=== PATIENT | male | born 1970 | race Caucasian/White ===

== ENCOUNTER 2016-12-22 12:20 | Emergency (ER) | payer OTHER, MEDICAID ==
[~2016-12-22] VITALS: Ht 195.6 cm; Wt 104.3 kg
[2016-12-22 12:25] VITALS: BP_SYST 157
[2016-12-22] MEDS ORDERED: LORazepam 1 MG TABLET PO ONE (15:15)
[2016-12-22 15:22] LABS: BASOPHILS # (AUTO) 0.1 K/uL (0.0-0.2); BASOPHILS % (AUTO) 0.6 % (0.0-2.0); EOSINOPHILS # (AUTO) 0.2 K/uL (0.0-0.4); EOSINOPHILS % (AUTO) 1.9 % (0.0-4.0); HEMOGLOBIN 14.7 g/dL (14.0-18.0); LYMPHOCYTES # (AUTO) 2.5 K/uL (1.0-5.5); LYMPHOCYTES % (AUTO) 27.9 % (20.5-51.5); MEAN CORPUSCULAR HEMOGLOBIN 27 pg (27-31); MEAN CORPUSCULAR HGB CONC 33 % (32-36); MEAN CORPUSCULAR VOLUME 83 fL (79.0-98.0); MONOCYTES # (AUTO) 0.7 K/uL (0.0-1.0); MONOCYTES % (AUTO) 7.3 % (1.7-9.3); NEUTROPHILS # (AUTO) 5.6 K/uL (1.8-7.7); NEUTROPHILS % (AUTO) 62.3 % (40.0-70.0); PLATELET COUNT (AUTO) 271 K/uL (130-430); RED BLOOD CELL COUNT(AUTO) 5.42 MIL/uL (4.2-6.2); RED CELL DISTRIBUTION WIDTH 13.5 % (9.0-15.0); WHITE BLOOD COUNT (AUTO) 9.1 K/uL (4.8-10.8)
[2016-12-22 15:34] LABS: CALCIUM 9.1 mg/dL (8.4-11.0); CREATININE 0.81 mg/dL (0.55-1.30); POTASSIUM 3.8 mmol/L (3.5-5.1)
[2016-12-22 15:50] LABS: ALBUMIN 4.3 g/dL (3.4-4.8); FREE T4 (FREE THYROXINE) 0.8 ng/dL (0.6-1.6); THYROID STIMULATING HORMONE 1.29 uIu/mL (0.34-4.82); TOTAL BILIRUBIN 0.3 mg/dL (0.0-1.0); TOTAL PROTEIN, SERUM 7.6 g/dL (6.4-8.3)
[2016-12-22 17:47] VITALS: BP_SYST 136
== END 2016-12-22 17:47 | disposition home or self-care (01) ==
LOC: SED 12:20
DX: F41.9 Anxiety disorder, unspecified (principal)
CPT/HCPCS: 36415; 71010; 80053; 84439; 84443-TC; 84484; 85025; 93005; 99285

== ENCOUNTER 2017-01-08 13:22 | Emergency (ER) | payer OTHER, MEDICAID ==
[~2017-01-08] VITALS: Ht 195.6 cm; Wt 104.3 kg
[2017-01-08 13:30] VITALS: BP_SYST 133
--- NOTE | 2017-01-08 13:34 | NUR ---
Pt placed to ER bed 02, to rylee, report given to SERGEI Helton.
--- NOTE | 2017-01-08 13:35 | NUR ---
PT PRSENTS TO ED C/O ABD PAIN W/NAUSEA X 3 DAYS W/ A FEW EPISODES OF VOMITING.PT REPORTS BEING WEAK AND UNABLE T O TOLERATE FOOD.PT HAS NO ACUTE DISTRESS NOTED. PT ABLE TO SPEAK IN FULL SENTENCES.
--- NOTE | 2017-01-08 13:38 | NUR ---
ER at bedside examining patient.
--- NOTE | 2017-01-08 13:40 | NUR ---
# 20 gauge angiocath placed to LH. Use of asceptic technique. Opsite placed over site. Blood return noted. Flushed with 10 cc of normal saline. No evidence of infiltration noted. Patient tolerated well.
[2017-01-08] MEDS ORDERED: ONDANSETRON HCL 4 MG/2 ML VIAL IVP ONE (14:00)
[2017-01-08] MEDS ORDERED: NACL 0.9% 1,000 ML IV ONE ×2 (14:00→16:00)
[2017-01-08] MEDS ORDERED: KETOROLAC TROMETHAMINE 30 MG VIAL IVP ONE (14:00)
--- NOTE | 2017-01-08 14:30 | NUR ---
Pt medicated tolerated well.
[2017-01-08 14:33] LABS: BASOPHILS # (AUTO) 0.1 K/uL (0.0-0.2); BASOPHILS % (AUTO) 1.4 % (0.0-2.0); EOSINOPHILS % (AUTO) 0.6 % (0.0-4.0); HEMATOCRIT 51.4 % (36-54); HEMOGLOBIN 16.3 g/dL (14.0-18.0); LYMPHOCYTES # (AUTO) 1.6 K/uL (1.0-5.5); LYMPHOCYTES % (AUTO) 21.4 % (20.5-51.5); MEAN CORPUSCULAR HEMOGLOBIN 27 pg (27-31); MEAN CORPUSCULAR HGB CONC 32 % (32-36); MEAN CORPUSCULAR VOLUME 85 fL (79.0-98.0); MONOCYTES # (AUTO) 0.7 K/uL (0.0-1.0); MONOCYTES % (AUTO) 9.8 % (1.7-9.3); NEUTROPHILS # (AUTO) 4.9 K/uL (1.8-7.7); NEUTROPHILS % (AUTO) 66.8 % (40.0-70.0); PLATELET COUNT (AUTO) 245 K/uL (130-430); RED BLOOD CELL COUNT(AUTO) 6.07 MIL/uL (4.2-6.2); RED CELL DISTRIBUTION WIDTH 13.4 % (9.0-15.0); WHITE BLOOD COUNT (AUTO) 7.3 K/uL (4.8-10.8)
[2017-01-08 14:43] LABS: CREATININE 1.02 mg/dL (0.55-1.30); POTASSIUM 3.7 mmol/L (3.5-5.1)
[2017-01-08 14:45] LABS: PROTHROMBIN TIME 10.6 SECS (9.5-12.5)
[2017-01-08 14:48] LABS: ALBUMIN 4.4 g/dL (3.4-4.8); TOTAL BILIRUBIN 0.5 mg/dL (0.0-1.0); TOTAL PROTEIN, SERUM 8.5 g/dL (6.4-8.3)
--- NOTE | 2017-01-08 16:10 | NUR ---
Pt receiving additional IVF.
[2017-01-08] MEDS ORDERED: LIDOCAINE VISCOUS 2%, 15 ML UDC MM ONE (16:30)
[2017-01-08] MEDS ORDERED: BELLADONNA ALKALOIDS/PHENOBARB 5 ML UDC PO ONE (16:30)
[2017-01-08] MEDS ORDERED: MAG-AL HYDROX/SIMETH 30 ML UDC PO ONE (16:30)
--- NOTE | 2017-01-08 16:49 | NUR ---
Pt tolerated medication well. attempting urine specimen collection.
--- NOTE | 2017-01-08 17:14 | NUR ---
Pt reports pain resolving. UA cancelled per Dr. Bartlett. Pt endorsed to Yue MAI
[2017-01-08 17:52] VITALS: BP_SYST 127
--- NOTE | 2017-01-08 17:52 | NUR ---
Patient given written and verbal discharge instructions and verbalizes understanding. ER MD discussed with patient the results and treatment provided. Patient in stable condition. ID arm band removed. IV catheter removed intact and dressing applied, no active bleeding. Rx of bentyl, zofran given. Patient educated on pain management and to follow up with PMD. Pain Scale 3/10. Opportunity for questions provided and answered.
== END 2017-01-08 17:52 | disposition home or self-care (01) ==
LOC: SED 13:22
DX: E86.0 Dehydration (principal); R10.9 Unspecified abdominal pain
CPT/HCPCS: 36415; 71010; 80053; 80061; 84484; 85025; 85610; 85730; 93005; 96361; 96374; 96375; 99285; J1885; J2001; J2405; J7030

== ENCOUNTER 2017-05-07 16:09 | Inpatient (IN) | payer OTHER, MEDICAID ==
[~2017-05-07] VITALS: Ht 195.6 cm; Wt 104.3 kg
[2017-05-07 16:21] VITALS: BP_SYST 129
[2017-05-07] MEDS ORDERED: ONDANSETRON HCL 4 MG/2 ML VIAL IVP ONE (17:15)
[2017-05-07] MEDS ORDERED: NACL 0.9% 1,000 ML IV ONE ×2 (17:15→17:30)
[2017-05-07 17:17] LABS: EOSINOPHILS # (AUTO) 0.1 K/uL (0.0-0.4); HEMATOCRIT 41.8 % (36-54); LYMPHOCYTES # (AUTO) 0.6 K/uL (1.0-5.5); MEAN CORPUSCULAR HEMOGLOBIN 27 pg (27-31); MEAN CORPUSCULAR HGB CONC 33 % (32-36); MEAN CORPUSCULAR VOLUME 83 fL (79.0-98.0); RED CELL DISTRIBUTION WIDTH 13.1 % (9.0-15.0)
[2017-05-07 17:28] LABS: BASOPHILS % (AUTO) 0.4 % (0.0-2.0); EOSINOPHILS % (AUTO) 1.4 % (0.0-4.0); HEMOGLOBIN 13.7 g/dL (14.0-18.0); LYMPHOCYTES % (AUTO) 6.5 % (20.5-51.5); MONOCYTES # (AUTO) 0.5 K/uL (0.0-1.0); MONOCYTES % (AUTO) 5.6 % (1.7-9.3); NEUTROPHILS # (AUTO) 8.1 K/uL (1.8-7.7); NEUTROPHILS % (AUTO) 86.1 % (40.0-70.0); PLATELET COUNT (AUTO) 205 K/uL (130-430); RED BLOOD CELL COUNT(AUTO) 5.02 MIL/uL (4.2-6.2); WHITE BLOOD COUNT (AUTO) 9.3 K/uL (4.8-10.8)
[2017-05-07] MEDS ORDERED: KETOROLAC TROMETHAMINE 30 MG VIAL IVP ONE (17:30)
[2017-05-07] MEDS ORDERED: NACL 0.9% 1,000 ML IV SCH (17:32)
[2017-05-07 17:37] LABS: INR 1.1 (0.80-1.20); PROTHROMBIN TIME 10.7 SECS (9.5-12.5)
[2017-05-07 17:41] LABS: CALCIUM 9.6 mg/dL (8.4-11.0); CREATININE 0.98 mg/dL (0.55-1.30); POTASSIUM 3.1 mmol/L (3.5-5.1)
[2017-05-07] MEDS ORDERED: IPRATROPIUM BROM 0.5 MG/2.5 ML VIAL.NEB (ATROVENT) IH ONE (17:45)
[2017-05-07] MEDS ORDERED: ALBUTEROL SULFATE 0.083% 2.5 MG/3 ML VIAL.NEB IH ONE (17:45)
[2017-05-07] MEDS ORDERED: cefTRIAXone 2 GM VIAL ONE (18:06)
[2017-05-07] MEDS ORDERED: NITROGLYCERIN 0.4 MG TAB.SUBL SL PRN (18:15)
[2017-05-07 18:19] LABS: ALBUMIN 3.6 g/dL (3.4-4.8); BILIRUBIN,DIRECT 0.2 mg/dL (0.0-0.3); TOTAL BILIRUBIN 0.5 mg/dL (0.0-1.0)
[2017-05-07] MEDS ORDERED: ZOLPIDEM TARTRATE 5 MG TABLET PO PRN (18:30)
[2017-05-07] MEDS ORDERED: LORazepam 2 MG/ML VIAL IVP PRN (18:30)
[2017-05-07] MEDS ORDERED: POTASSIUM CHLORIDE 20 MEQ TAB.PRT.SR PO PRN (18:30)
[2017-05-07] MEDS ORDERED: MAGNESIUM SULFATE 50 ML IV PRN (18:30)
[2017-05-07] MEDS ORDERED: LEVALBUTEROL HCL 0.63 MG/3 ML VIAL.NEB INH PRN ×2 (18:30)
[2017-05-07 18:49] LABS: FREE T4 (FREE THYROXINE) 0.7 ng/dL (0.6-1.6); PHOSPHORUS 2.1 mg/dL (2.7-4.5); THYROID STIMULATING HORMONE 0.77 uIu/mL (0.34-4.82)
[2017-05-07 19:11] VITALS: BP_SYST 117
[2017-05-07 19:26] VITALS: BP_SYST 117
[2017-05-07] MEDS: NACL 0.9% 1,000 ML IV SCH (19:32)
[2017-05-07] MEDS ORDERED: *HEPARIN PER PHARMACY XX PRN (20:15)
[2017-05-07] MEDS: MORPHINE 2 MG/ML INJ. SYRINGE IVP PRN (20:30)
[2017-05-07] MEDS ORDERED: HEPARIN SODIUM,PORCINE 5000 UNITS/ML VIAL IVP ONE (20:30)
[2017-05-07] MEDS ORDERED: HEPARIN SODIUM,PORCINE 3000 UNITS/0.6 ML BOLUS IVP PRN (20:30)
[2017-05-07] MEDS ORDERED: HEPARIN SODIUM,PORCINE 2000 UNITS/0.4 ML BOLUS IVP PRN (20:30)
[2017-05-07] MEDS ORDERED: SACCHAROMYCES BOULARDII 250 MG CAPSULE (FLORASTOR) PO SCH (21:00)
[2017-05-07] MEDS: LACTOBACILLUS RHAMNOSUS GG 1 CAP CAPSULE PO SCH (21:41)
[2017-05-07] MEDS: DOCUSATE SODIUM 100 MG CAPSULE PO SCH (21:42)
[2017-05-07] MEDS: METOPROLOL TARTRATE 25 MG TABLET PO SCH (21:43)
[2017-05-07] MEDS: HEPARIN 25,000 UNITS/D5W 250ML 250 ML IV PRN (22:08)
[2017-05-07 22:51] VITALS: BP_SYST 117
[2017-05-07 23:43] LABS: BILIRUBIN,URINE NEGATIVE (NEGATIVE); BLOOD, URINE NEGATIVE (NEGATIVE); CLARITY/URINE CLEAR (CLEAR); COLOR,URINE YELLOW (YELLOW); GLUCOSE,URINE NEGATIVE (NEGATIVE); KETONES,URINE 1+ (NEGATIVE); LEUKOCYTE ESTERASE ,URINE NEGATIVE (NEGATIVE); NITRITE, URINE NEGATIVE (NEGATIVE); PROTEIN URINE 2+ (NEGATIVE); UROBILINOGEN,URINE 0.2 (0.2-1.0)
[2017-05-07 23:51] LABS: BACTERIA,URINE MODERATE /HPF (None Seen); MUCUS,URINE 1+ /LPF (None Seen); RBC,URINE 0-3 /HPF (0-3); WBC,URINE 0-3 /HPF (0-3)
[2017-05-08] MEDS: MORPHINE 2 MG/ML INJ. SYRINGE IVP PRN ×6 (00:33→23:03)
[2017-05-08] MEDS: ACETAMINOPHEN 325 MG TABLET PO PRN ×3 (00:34→15:45)
[2017-05-08] MEDS: NACL 0.9% 1,000 ML IV SCH ×2 (00:35→23:03)
[2017-05-08 01:01] VITALS: BP_SYST 129
[2017-05-08] MEDS: ONDANSETRON HCL 4 MG/2 ML VIAL IVP PRN ×3 (01:01→16:03)
[2017-05-08 05:06] LABS: CHOLESTEROL 114 mg/dL (<200); HDL CHOLESTEROL 29 mg/dL (>45); LDL CHOLESTEROL 83 mg/dL (<100); TRIGLYCERIDES 95 mg/dL (30-150)
[2017-05-08] MEDS: PIPERACILLIN/TAZO 3.375/DEX-IS 50 ML IV SCH ×2 (06:14→12:11)
[2017-05-08 08:15] VITALS: BP_SYST 111
[2017-05-08] MEDS: LISINOPRIL 5 MG TABLET PO SCH (08:17)
[2017-05-08] MEDS: ATORVASTATIN 20 MG TABLET PO SCH (08:18)
[2017-05-08] MEDS: METOPROLOL TARTRATE 25 MG TABLET PO SCH ×2 (08:18→20:22)
[2017-05-08] MEDS: LACTOBACILLUS RHAMNOSUS GG 1 CAP CAPSULE PO SCH ×2 (08:18→20:20)
[2017-05-08] MEDS: DOCUSATE SODIUM 100 MG CAPSULE PO SCH ×2 (08:27→20:21)
[2017-05-08] MEDS: ASPIRIN 81 MG TAB.CHEW PO SCH (08:27)
[2017-05-08 11:33] VITALS: BP_SYST 123
[2017-05-08] MEDS ORDERED: SUMAtriptan SUCCINATE 6 MG/0.5 ML VIAL SUBCUT ONE (11:45)
[2017-05-08] MEDS ORDERED: KETOROLAC TROMETHAMINE 15 MG VIAL IVP PRN (11:45)
[2017-05-08] MEDS: HEPARIN 25,000 UNITS/D5W 250ML 250 ML IV PRN (13:28)
[2017-05-08] MEDS ORDERED: cefTRIAXone 1 GM in D5W 50 ML IV SCH (14:00)
[2017-05-08] MEDS ORDERED: AZITHROMYCIN 500 MG in NS 250 ML IV SCH (15:00)
[2017-05-08 16:17] VITALS: BP_SYST 112
[2017-05-08] MEDS ORDERED: DULO60CA64 PO (18:37)
[2017-05-08 20:15] VITALS: BP_SYST 123
[2017-05-08] MEDS ORDERED: LORazepam 2 MG/ML VIAL IVP ONE (21:00)
[2017-05-08] MEDS ORDERED: ZOLPIDEM TARTRATE 5 MG TABLET PO SCH (21:00)
[2017-05-09 00:13] VITALS: BP_SYST 100
[2017-05-09 04:27] VITALS: BP_SYST 97
[2017-05-09] MEDS: MORPHINE 2 MG/ML INJ. SYRINGE IVP PRN (04:28)
[2017-05-09 06:48] LABS: BASOPHILS % (AUTO) 0.3 % (0.0-2.0); EOSINOPHILS % (AUTO) 0.1 % (0.0-4.0); HEMATOCRIT 30.9 % (36-54); HEMOGLOBIN 10.2 g/dL (14.0-18.0); LYMPHOCYTES % (AUTO) 14.5 % (20.5-51.5); MEAN CORPUSCULAR HEMOGLOBIN 28 pg (27-31); MEAN CORPUSCULAR HGB CONC 33 % (32-36); MEAN CORPUSCULAR VOLUME 84 fL (79.0-98.0); MONOCYTES # (AUTO) 0.7 K/uL (0.0-1.0); NEUTROPHILS % (AUTO) 75.1 % (40.0-70.0); PLATELET COUNT (AUTO) 166 K/uL (130-430); RED BLOOD CELL COUNT(AUTO) 3.66 MIL/uL (4.2-6.2); RED CELL DISTRIBUTION WIDTH 12.8 % (9.0-15.0); WHITE BLOOD COUNT (AUTO) 6.7 K/uL (4.8-10.8)
[2017-05-09 07:56] LABS: ALBUMIN 2.5 g/dL (3.4-4.8); CALCIUM 8.1 mg/dL (8.4-11.0); CREATININE 0.94 mg/dL (0.55-1.30); POTASSIUM 3.1 mmol/L (3.5-5.1); TOTAL BILIRUBIN 0.3 mg/dL (0.0-1.0)
[2017-05-09] MEDS ORDERED: LEVO750T45 PO (08:04)
[2017-05-09] MEDS ORDERED: GUAI100S14 PO (08:04)
[2017-05-09] MEDS ORDERED: ALBMDI INH (08:04)
[2017-05-09 08:38] LABS: T4 (THYROXINE) 6.5 ug/dL (4.5-12.0)
[2017-05-09 08:53] VITALS: BP_SYST 112
[2017-05-09] MEDS: LACTOBACILLUS RHAMNOSUS GG 1 CAP CAPSULE PO SCH (08:56)
[2017-05-09] MEDS: ATORVASTATIN 20 MG TABLET PO SCH (08:56)
[2017-05-09] MEDS: METOPROLOL TARTRATE 25 MG TABLET PO SCH (08:57)
[2017-05-09] MEDS: LISINOPRIL 5 MG TABLET PO SCH (08:57)
[2017-05-09] MEDS: ASPIRIN 81 MG TAB.CHEW PO SCH (08:57)
[2017-05-09] MEDS: DOCUSATE SODIUM 100 MG CAPSULE PO SCH (08:57)
[2017-05-09 09:33] VITALS: BP_SYST 112
[2017-05-09 10:43] VITALS: BP_SYST 109
[2017-05-09 20:16] LABS: HEMOGLOBIN A1C 5.9 % (4.8-5.6)
[2017-05-09] MEDS ORDERED: ONDA4TAB5 PO (23:21)
== END 2017-05-09 10:00 | disposition home or self-care (01) | DRG 280 ==
LOC: SED 16:09 → STU 17:46
PROVIDERS: ADMIT Family Medicine; ATTEND Family Medicine
DX: I21.A1 Myocardial infarction type 2 (principal); J18.9 Pneumonia, unspecified organism; N17.0 Acute kidney failure with tubular necrosis; E43 Unspecified severe protein-calorie malnutrition; M54.5 Low back pain; I10 Essential (primary) hypertension; G89.29 Other chronic pain; G43.909 Migraine, unspecified, not intractable, without status migrainosus; K21.9 Gastro-esophageal reflux disease without esophagitis; E87.6 Hypokalemia; Z79.899 Other long term (current) drug therapy; Z82.49 Family history of ischemic heart disease and other diseases of the circulatory system
CPT/HCPCS: 36415; 36600; 70450-TC; 71010; 71020-TC; 80048; 80053; 80061; 80076; 81000-TC; 82150-TC; 82803-TC; 83036; 83605; 83690-TC; 83735-TC; 83880; 84100-TC; 84436; 84439; 84443-TC; 84479; 84484; 85025; 85610-TC; 85730-TC; 87040-TC; 87086; 93005; 93306; 94640; 96361; 96365; 96375; 99285; J0456; J0696; J1644; J1885; J1956; J2060; J2270; J2405; J2543; J3030; J7030; J7050; J7060

== ENCOUNTER 2017-05-09 22:02 | Emergency (ER) | payer OTHER, MEDICAID ==
[~2017-05-09] VITALS: Ht 195.6 cm; Wt 104.3 kg
[~2017-05-09 22:02] MED LIST: ALBMDI INH; DULO60CA64 PO; GUAI100S14 PO; LEVO750T45 PO
[2017-05-09 22:17] VITALS: BP_SYST 121
[2017-05-09] MEDS ORDERED: ALBUTEROL SULFATE 0.083% 2.5 MG/3 ML VIAL.NEB INH ONE (22:30)
[2017-05-09] MEDS ORDERED: ACETAMINOPHEN 500 MG TABLET PO ONE (22:30)
[2017-05-09] MEDS ORDERED: PIPERACILLIN/TAZO 3.38 GM in NS 50 ML IV ONE (22:30)
[2017-05-09] MEDS ORDERED: DIPHENHYDRAMINE INJ 50 MG/ML VIAL IVP ONE (22:30)
[2017-05-09] MEDS ORDERED: NACL 0.9% 1,000 ML IV ONE (22:30)
[2017-05-09] MEDS ORDERED: PIPERACILLIN/TAZOBACTAM 3.375 GM/VIAL (ZOSYN) IV ONE (23:01)
[2017-05-09 23:09] LABS: BASOPHILS % (AUTO) 0.4 % (0.0-2.0); EOSINOPHILS % (AUTO) 0.6 % (0.0-4.0); HEMOGLOBIN 12.4 g/dL (14.0-18.0); LYMPHOCYTES # (AUTO) 0.9 K/uL (1.0-5.5); LYMPHOCYTES % (AUTO) 13.4 % (20.5-51.5); MEAN CORPUSCULAR HEMOGLOBIN 28 pg (27-31); MEAN CORPUSCULAR HGB CONC 34 % (32-36); MEAN CORPUSCULAR VOLUME 84 fL (79.0-98.0); MONOCYTES # (AUTO) 0.7 K/uL (0.0-1.0); MONOCYTES % (AUTO) 10.2 % (1.7-9.3); NEUTROPHILS # (AUTO) 4.9 K/uL (1.8-7.7); NEUTROPHILS % (AUTO) 75.4 % (40.0-70.0); PLATELET COUNT (AUTO) 208 K/uL (130-430); RED BLOOD CELL COUNT(AUTO) 4.42 MIL/uL (4.2-6.2); RED CELL DISTRIBUTION WIDTH 13.2 % (9.0-15.0); WHITE BLOOD COUNT (AUTO) 6.5 K/uL (4.8-10.8)
[2017-05-09 23:15] LABS: BILIRUBIN,URINE NEGATIVE (NEGATIVE); BLOOD, URINE NEGATIVE (NEGATIVE); CLARITY/URINE CLEAR (CLEAR); COLOR,URINE YELLOW (YELLOW); GLUCOSE,URINE NEGATIVE (NEGATIVE); KETONES,URINE TRACE (NEGATIVE); LEUKOCYTE ESTERASE ,URINE NEGATIVE (NEGATIVE); NITRITE, URINE NEGATIVE (NEGATIVE); PROTEIN URINE NEGATIVE (NEGATIVE); UROBILINOGEN,URINE 0.2 (0.2-1.0)
[2017-05-09 23:21] LABS: CALCIUM 8.9 mg/dL (8.4-11.0); CREATININE 0.91 mg/dL (0.55-1.30); POTASSIUM 3.1 mmol/L (3.5-5.1)
[2017-05-09] MEDS ORDERED: ONDA4TAB5 PO (23:21)
[2017-05-09 23:25] LABS: ALBUMIN 2.8 g/dL (3.4-4.8); TOTAL BILIRUBIN 0.4 mg/dL (0.0-1.0)
[2017-05-09 23:26] LABS: INR 1.1 (0.80-1.20); PROTHROMBIN TIME 11.4 SECS (9.5-12.5)
[2017-05-09] MEDS ORDERED: POTASSIUM CHLORIDE 20 MEQ TAB.PRT.SR PO ONE (23:45)
[2017-05-10] MEDS ORDERED: ONDANSETRON HCL 4 MG/2 ML VIAL IVP ONE
[2017-05-10] MEDS ORDERED: DIPHENOXYLATE HCL/ATROP SULF 2.5 MG TAB PO ONE (01:15)
[2017-05-10 01:43] VITALS: BP_SYST 129
== END 2017-05-10 01:43 | disposition home or self-care (01) ==
LOC: SED 22:02
DX: J18.9 Pneumonia, unspecified organism (principal); I10 Essential (primary) hypertension; Z90.89 Acquired absence of other organs; Z79.899 Other long term (current) drug therapy
CPT/HCPCS: 36415; 71010; 74176; 80053; 81003; 83605; 83690; 85025; 85610; 87040; 93005; 94640; 96365; 96375; 99285; J1200; J2405; J2543; J7030; J7060

== ENCOUNTER 2017-09-30 10:42 | Emergency (ER) | payer OTHER, MEDICAID ==
[~2017-09-30] VITALS: Ht 195.6 cm; Wt 108.9 kg
[2017-09-30 10:42] VITALS: BP_SYST 132
[~2017-09-30 10:42] MED LIST changes: +ONDA4TAB5 PO
[2017-09-30 11:15] VITALS: BP_SYST 108
== END 2017-09-30 11:15 | disposition home or self-care (01) ==
LOC: SED 10:42
DX: J35.01 Chronic tonsillitis (principal); J06.9 Acute upper respiratory infection, unspecified; I10 Essential (primary) hypertension
CPT/HCPCS: 99283